=== PATIENT | male | born 1955 | race Caucasian/White ===

== ENCOUNTER 2023-10-05 14:27 | Emergency (ER) | payer OTHER, MEDICARE ==
[~2023-10-05] VITALS: Ht 180.3 cm; Wt 101.4 kg
[2023-10-05 14:31] VITALS: TEMP 98
[2023-10-05 15:20] VITALS: BP 189/115; PULSE 85; RESP 16; O2SAT 95
[2023-10-05] MEDS ORDERED: ketorolac tromethamine 15mg/ml inj. IM ONE (15:30)
== END 2023-10-05 16:34 | disposition home or self-care (01) ==
LOC: ER 14:28
DX: S00.01XA Abrasion of scalp, initial encounter (principal); S13.9XXA Sprain of joints and ligaments of unspecified parts of neck, initial encounter; E11.9 Type 2 diabetes mellitus without complications; Z79.899 Other long term (current) drug therapy; V98.8XXA Other specified transport accidents, initial encounter; Y93.89 Activity, other specified; Y92.89 Other specified places as the place of occurrence of the external cause; Y99.8 Other external cause status
CPT/HCPCS: 70450; 72125; 73502; 96372; 99285; J1885